=== PATIENT | female | born 1945 ===

== ENCOUNTER 2020-02-06 08:53 | Observation (INO) ==
[~2020-02-06 08:53] MED LIST: Buffered Lidocaine 1% SYRIN 1 ml INTRADERM ONE
[2020-02-06] MEDS ORDERED: ceFAZolin 2 GM PREMIX 2 GM/50 ML BAG ONE (09:05)
[2020-02-06] MEDS: Lactated Ringers 1000 ml BAG 1,000 ML IV SCH ×2 (09:38→15:49)
[2020-02-06] MEDS ORDERED: ROPIVACAINE 5 MG/ML 30 ML BTL (0.5%) ONE ×2 (09:39→11:18)
[2020-02-06] MEDS ORDERED: Lidocaine 2% PF 5 ML VIAL ONE (09:39)
[2020-02-06] MEDS ORDERED: fentaNYL 100 mcg/2 ml 50 MCG/ML VIAL ONE (11:28)
[2020-02-06] MEDS ORDERED: Midazolam 2 mg/2 ml VIAL 1 mg/ml 2 ml VIAL (2 mg) ONE (11:28)
[2020-02-06] MEDS ORDERED: fentaNYL 100 mcg/2 ml 50 MCG/ML VIAL IV PRN (12:09)
[2020-02-06] MEDS ORDERED: Naloxone 0.4 mg VIAL 0.4 mg/ml 1 ml VIAL IV PRN (12:09)
[2020-02-06] MEDS ORDERED: DiMENhydriNATE IV 50 mg/ml 1 ml VIAL IV PUSH PRN (12:09)
[2020-02-06] MEDS ORDERED: diPHENhydraMINE IV 50 MG/ML 1 ml VIAL (BENADRYL) IV PRN (13:09)
[2020-02-06] MEDS ORDERED: Ondansetron 4 mg VIAL 2 MG/ML 2 ml VIAL IV PRN (13:09)
[2020-02-06] MEDS ORDERED: diPHENhydraMINE 25 mg TAB PO PRN (13:09)
[2020-02-06] MEDS ORDERED: Lactulose 30 ml UDC PO PRN (13:09)
[2020-02-06] MEDS ORDERED: Magnesium Hydroxide LIQ 30 ML UDC PO PRN (13:09)
[2020-02-06] MEDS ORDERED: oxyCODONE/Acetamin 5/325 mg TAB PO PRN (13:09)
[2020-02-06] MEDS ORDERED: Ondansetron ODT 4 mg TAB 4 MG TAB PO PRN (13:09)
[2020-02-06] MEDS ORDERED: Propofol 10 MG/ML 20 ML BTL ONE (13:52)
[2020-02-06] MEDS: oxyCODONE/Acetamin 5/325 mg TAB PO PRN ×2 (17:46→23:00)
[2020-02-06] MEDS: ceFAZolin 1 GM ADVAN 1 GM in NS 0.9% 50 ML 50 ML IVPB SCH (20:06)
[2020-02-06] MEDS: Magnesium Hydroxide LIQ 30 ML UDC PO SCH ×2 (20:10→20:15)
[2020-02-07] MEDS: Lactated Ringers 1000 ml BAG 1,000 ML IV SCH ×2 (02:04)
[2020-02-07] MEDS: ceFAZolin 1 GM ADVAN 1 GM in NS 0.9% 50 ML 50 ML IVPB SCH ×2 (03:41→12:02)
[2020-02-07] MEDS: oxyCODONE/Acetamin 5/325 mg TAB PO PRN (03:41)
[2020-02-07 06:11] LABS: Hematocrit 39 % (35-47); Hemoglobin 13.3 g/dL (12.0-16.0); Mean Platelet Volume 6.9 fL (7.4-10.4); Platelet Count 246 10^3/uL (150-450)
[2020-02-07 06:24] LABS: Calcium 8.7 mg/dL (8.6-10.3); Potassium 4.1 mmol/L (3.5-5.0)
[2020-02-07 06:30] LABS: BUN/Creatinine Ratio 20.5 (8-20); EGFR African American 86.9 (>60); EGFR Non-African American 71.8 (>60)
[2020-02-07] MEDS: Magnesium Hydroxide LIQ 30 ML UDC PO SCH (08:40)
[2020-02-07] MEDS ORDERED: Vitamin THERAPEUTIC TAB PO SCH (09:00)
[2020-02-07 12:39] VITALS: BP 121/66
== END 2020-02-07 13:30 | disposition home or self-care (01) ==
LOC: OR 08:53 → EDSTATUS 13:30 → SSU 15:36 → INTOOBSV 15:36
PROVIDERS: ADMIT Orthopaedic Surgery Adult Reconstructive Orthopaedic Surgery; ATTEND Orthopaedic Surgery Adult Reconstructive Orthopaedic Surgery